=== PATIENT | female | born 1940 | race Caucasian/White ===

== ENCOUNTER 2018-03-10 16:13 | Emergency (ER) | payer MEDICARE, OTHER, SELFPAY ==
[2018-03-10] VITALS (9 sets, daily range): BP systolic 102–122; BP diastolic 62–86; PULSE 64–92; RESP 16–20; TEMP 37.2; O2SAT 90–98
--- NOTE | 2018-03-10 16:41 | ED.GENADULT ---
HPI - General Adult General Chief complaint: Neck Pain/Injury Stated complaint: cant swallow,multiple complaints Time Seen by Provider: 03/10/18 16:41 Source: patient Mode of arrival: ambulatory Limitations: no limitations History of Present Illness HPI narrative: 77-year-old female here for evaluation of multiple complaints. Patient states that she woke this morning with chest pain that was retrosternal that has now moved epigastric pain. She states that she also has bilateral shoulder and back pain. Also complains of neck pain and a sore throat. No abdominal pain. States she went to bed last night without any symptoms and woke with him this morning. They have continued throughout today. Had been constant. Has not tried anything for it. No problems breathing. Related Data Home Medications Medication Instructions Recorded Confirmed Calcium 1 tab PO BID 03/10/18 03/10/18 hydrocodone-acetaminophen 1 - 2 tab PO Q4H PRN 03/10/18 03/10/18 venlafaxine [Effexor XR] 75 mg PO DAILY 03/10/18 03/10/18 vit C,U-Gc-kwecs-lutein-zeaxan 1 tab PO BID 03/10/18 03/10/18 [PreserVision AREDS 2] Previous Rx's Medication Instructions Recorded lorazepam [Ativan] 0.5 mg PO TID #15 tab 02/02/18 omeprazole 40 mg PO QDAY #30 tab 02/12/18 venlafaxine [Effexor XR] 150 mg PO QDAY #30 cap 02/12/18 estradiol [Climara] 0.05 mg TOPICAL Q7D@0900 #8 patch 02/16/18 Allergies Allergy/AdvReac Type Severity Reaction Status Date / Time Sulfa (Sulfonamide Allergy Severe CONVULSION Unverified 02/03/18 12:55 Antibiotics) [SULFA (SULFONAMIDE ANTIBIOTICS)] alendronate sodium Allergy Mild ? Unverified 02/03/18 12:55 [ALENDRONATE SODIUM] alprazolam [ALPRAZOLAM] Allergy Mild ? Unverified 02/03/18 12:55 meperidine [MEPERIDINE] Allergy Mild ? Unverified 02/03/18 12:55 Penicillins [PENICILLINS] Allergy Mild RASH Unverified 02/03/18 12:55 propoxyphene [PROPOXYPHENE] Allergy Mild Unverified 02/03/18 12:55 Review of Systems Constitutional Denies chills, Denies fever(s), Denies headache(s), Denies lethargy and Denies weakness Eyes Denies change in vision, Denies diplopia, Denies irritation and Denies loss of vision ENT Ears, Nose, Mouth, and Throat: Denies vertigo, Reports dry mouth, Denies headache(s), Denies lip swelling, Reports neck pain, Denies sore throat, Denies throat swelling and Denies tongue swelling Cardiovascular Reports chest pain, Reports chest pain at rest, Denies diaphoresis, Denies syncope, Denies edema, Denies irregular heart rhythm, Denies lightheadedness, Reports radiating jaw, neck or arm pain, Denies palpitations, Denies dyspnea, Denies dyspnea on exertion and Denies slow heart rate Respiratory Denies cough, Denies pain on inspiration, Denies pain with cough, Denies dyspnea, Denies dyspnea on exertion and Denies wheezing Gastrointestinal Gastrointestinal: Reports abdominal pain (Epigastric), Denies bloating, Denies change in bowel habits, Denies diarrhea, Denies nausea, Denies vomiting and Denies hematemesis Genitourinary Denies hematuria, Denies dysuria, Denies pelvic pain, Denies flank pain, Denies urinary incontinence and Denies urinary urgency Musculoskeletal Denies abnormal gait, Reports back pain (Upper back), Denies myalgias, Denies arthralgias, Denies limited range of motion and Reports neck pain Integumentary/Breasts Denies pruritus, Denies erythema, Denies rash and Denies wounds Neurologic Denies abnormal gait, Denies vertigo, Denies syncope, Denies headache(s), Denies lack of coordination, Denies focal weakness, Denies loss of vision and Denies weakness Endocrine Denies palpitations Hematologic/Lymphatic Denies easy bleeding and Denies easy bruising Allergic/Immunologic Denies lip swelling, Denies throat swelling, Denies tongue swelling and Denies wheezing [facility] Surgical History History of bilateral salpingo-oophorectomy (BSO) Status post vaginal hysterectomy Social History Smoking Status: Never smoker Exam Initial Vital Signs Initial Vital Signs: Vital Signs Temperature 98.9 F 03/10/18 16:17 Pulse Rate 92 H 03/10/18 16:17 Respiratory Rate 20 03/10/18 16:17 Blood Pressure 122/67 H 03/10/18 16:17 Pulse Oximetry 98 03/10/18 16:17 Const General: cooperative and in distress Nutritional Appearance: average body habitus Orientation: alert, awake and oriented x3 Limitations: mental status not altered [facility] Head: normal to inspection, normocephalic and atraumatic Nose: external nose normal Mouth: No oral mucosae normal (Dry mucous) and No oropharynx normal Throat: uvula midline and no uvular edema Eyes General: appearance normal, both eyes and all related structures Neck Neck: normal visual inspection, no meningeal signs, trachea midline, No anterior neck swelling and No lymphadenopathy Chest Chest: normal inspection of the chest Resp Effort & Inspection: normal respiratory effort, able to speak in complete sentences, no respiratory distress and no use of accessory muscles Auscultation: clear to auscultation bilaterally, no rales, no rhonchi and no wheezes Cardio Rate: regular rate Rhythm: regular rhythm Heart Sounds: no click, no gallops, no murmurs and no rubs Pulses: radial pulses present and normal peripheral pulses GI Inspection: non-distended Palpation: soft, no hepatosplenomegaly, No guarding, No pulsatile mass and No tender Auscultation: normal bowel sounds Back/Spine/Pelvis Back: No CVA tenderness Cervical Spine: cervical ROM normal and No pain with cervical ROM Thoracic/Lumbar Spine: thoracic and lumbar spine normal to inspection and pain with thoraco-lumbar ROM (Pain in upper back with forward flexion) Skin General: no rashes or lesions noted, No jaundice and No petechiae Lesions: no lesions Rashes: no rashes Wounds: no wounds Neuro General: alert, oriented x3, gait normal and no focal motor deficits Speech: speech normal Motor: muscle tone normal throughout and strength 5/5 throughout Sensory Exam: no sensory deficits noted Extrem General: full ROM, no clubbing, cyanosis or edema, no pedal edema and no calf tenderness Psych Appearance: well kempt Mental Status: mental status grossly normal Attitude: cooperative Thought Content: normal Judgment: judgment good Course Orders Ordered: ED Orders 03/10/18 16:27 EKG-12 Lead Stat 03/10/18 16:42 B Type Natriuretic Peptide Stat Complete Blood Count AUTO DIFF Stat Comprehensive Metabolic Panel Stat Lipase Stat Partial Thromboplastin Time Stat Prothrombin Time INR Stat Troponin with CK Cardiac Panel Stat 03/10/18 17:14 XR chest 1V Stat EKG-12 Lead Stat 03/10/18 17:23 CT angio chest abdomen Stat 03/10/18 17:57 Type and Screen Stat 03/10/18 18:00 Packed Cells Stat Type and Screen Stat Sodium Chloride (Normal Saline 0.9%) 1,000 mls @ 150 mls/hr IV CONT RADHA Last Admin: 03/10/18 18:05 Dose: 150 mls/hr Discontinued Medications Aspirin (Aspirin Chew) 324 mg PO NOW ONE Stop: 03/10/18 17:15 Last Admin: 03/10/18 17:37 Dose: 324 mg Al Hydrox/Mg Hydrox/Simethicone 20 ml/ Lidocaine HCl 15 ml 0 ml PO NOW ONE Stop: 03/10/18 17:24 Last Admin: 03/10/18 17:37 Dose: 40 ml Morphine Sulfate (Morphine) 4 mg IV NOW ONE Stop: 03/10/18 18:13 Last Admin: 03/10/18 18:13 Dose: 4 mg Vital Signs - 8 hr 03/10/18 16:17 03/10/18 17:25 03/10/18 17:30 Temperature 98.9 F Pulse Rate 92 H 64 69 Respiratory Rate 20 16 18 Blood Pressure 122/67 H Blood Pressure [Left Arm] 104/75 102/62 Pulse Oximetry 98 98 90 L 03/10/18 18:00 03/10/18 18:10 03/10/18 18:15 Temperature Pulse Rate 72 80 80 Respiratory Rate 18 17 18 Blood Pressure Blood Pressure [Left Arm] 120/80 104/80 104/73 Pulse Oximetry 92 Medical Decision Making [facility] Narrative Medical decision making narrative: Patient with consistent chest pain since she woke up this morning. Initial troponin was negative. Patient is stable here in the emergency department blood pressure is appropriate for her diagnosis. Consult it [facility] however they will informed us that they had to heart transplant surgeries going on this evening and could not take her. Discussed the case with Dr. Santoyo with [facility] accepts patient in transfer. Air lift currently in route. Dr. Santoyo recommended labetalol to lower heart rate which she was given here in the emergency department. Patient and was at bedside were informed of the diagnosis and the need for transport for surgical intervention. They expressed understanding. Patient currently stable for transport. Lab Data Lab results reviewed: Yes I reviewed the patient's lab results. Result diagrams: 03/10/18 16:42 03/10/18 16:42 Lab Results 03/10/18 03/10/18 03/10/18 Range/Units 16:42 16:42 16:42 WBC 10.7 (4.5-11.0) X10^3/uL RBC 4.12 (4.0-5.2) X10^6/uL Hgb 12.5 (12.0-16.0) g/dL Hct 37.9 (36-46) % MCV 92.1 (80-100) fL MCH 30.2 (26-34) PG MCHC 32.9 (30-36) % RDW 14.5 (11.6-14.8) % Plt Count 209 (150-400) X10^3/uL Neut % (Auto) 77.6 H (50-75) % Lymph % (Auto) 14.1 L (25-40) % [place] % (Auto) 7.3 (3-14) % Eos % (Auto) 0.5 L (2-4) % Baso % (Auto) 0.5 (0-2) % Neut # (Auto) 8300 H (8056-7375) /uL PT 12.0 (10.1-12.7) SECONDS INR 1.1 (0.9-1.3) APTT 34 (26.4-36.2) SECONDS Sodium 142 (137-145) mmol/L Potassium 3.6 (3.4-5.1) mmol/L Chloride 100.0 (98-107) mmol/L Carbon Dioxide 31.0 (22-32) mmol/L BUN 34.0 H (7-17) mg/dL Creatinine 0.80 (0.52-1.04) mg/dL Estimated GFR > 60.0 (>60) mL/min BUN/Creatinine Ratio 42.5 H (6-22) Glucose 98 (80-110) mg/dL Calcium 9.1 (8.4-10.2) mg/dL Total Bilirubin 0.5 (0.2-1.3) mg/dL AST 29 (14-36) IU/L ALT 21 (9-52) IU/L Alkaline Phosphatase 89 (38-126) U/L Total Creatine Kinase 35 (30-135) U/L Troponin I < 0.012 (0.01-0.034) ng/mL B-Natriuretic Peptide 47.2 (<100) Total Protein 7.1 (6.3-8.2) g/dL Albumin 3.9 (3.5-5.0) g/dL Globulin 3.2 (1.7-4.1) g/dL Albumin/Globulin Ratio 1.2 (1.0-2.8) Lipase 140 (23-300) U/L Crossmatch (AHG) 03/10/18 Range/Units 18:00 WBC (4.5-11.0) X10^3/uL RBC (4.0-5.2) X10^6/uL Hgb (12.0-16.0) g/dL Hct (36-46) % MCV (80-100) fL MCH (26-34) PG MCHC (30-36) % RDW (11.6-14.8) % Plt Count (150-400) X10^3/uL Neut % (Auto) (50-75) % Lymph % (Auto) (25-40) % [place] % (Auto) (3-14) % Eos % (Auto) (2-4) % Baso % (Auto) (0-2) % Neut # (Auto) (2929-6019) /uL PT (10.1-12.7) SECONDS INR (0.9-1.3) APTT (26.4-36.2) SECONDS Sodium (137-145) mmol/L Potassium (3.4-5.1) mmol/L Chloride (98-107) mmol/L Carbon Dioxide (22-32) mmol/L BUN (7-17) mg/dL Creatinine (0.52-1.04) mg/dL Estimated GFR (>60) mL/min BUN/Creatinine Ratio (6-22) Glucose (80-110) mg/dL Calcium (8.4-10.2) mg/dL Total Bilirubin (0.2-1.3) mg/dL AST (14-36) IU/L ALT (9-52) IU/L Alkaline Phosphatase (38-126) U/L Total Creatine Kinase (30-135) U/L Troponin I (0.01-0.034) ng/mL B-Natriuretic Peptide (<100) Total Protein (6.3-8.2) g/dL Albumin (3.5-5.0) g/dL Globulin (1.7-4.1) g/dL Albumin/Globulin Ratio (1.0-2.8) Lipase (23-300) U/L Crossmatch (AHG) See Detail Imaging Data Chest x-ray: Radiologist's impression: PROCEDURE: XR CHEST 1V INDICATIONS: Chest and back pain TECHNIQUE: One view of the chest was acquired. COMPARISON: [facility], CR, CHEST 2 VIEW, 03/27/2011, 16:29. FINDINGS: Surgical changes and devices: None. Lungs and pleura: No pleural effusions or pneumothorax. Lungs are clear. Chronic scattered scarring/atelectasis Mediastinum: Mediastinal contours appear normal. Heart size is normal. Bones and chest wall: No suspicious bony lesions. Overlying soft tissues appear unremarkable. Scoliosis noted. IMPRESSION: No acute cardiopulmonary disease. No interval change. Dictated by: Gustavo Holden M.D. on 03/10/2018 at 18:06 CT scan - chest: Radiologist's impression: PROCEDURE: CT ANGIO CHEST ABDOMEN INDICATIONS: Chest and back pain would like eval for dissection TECHNIQUE: Precontrast 5 mm thick sections acquired from the lung apices to the iliac crests. After the administration of intravenous contrast, 2.5 mm thick sections again acquired from the lung apices to the iliac crests. 10 mm maximum intensity projection (MIP) oblique sagittal and coronal reformats were then acquired. For radiation dose reduction, the following was used: automated exposure control. COMPARISON: [facility], CT, ABDOMEN/PELVIS WITH CONTRAST, 06/19/2015, 1:23. FINDINGS: Image quality: Excellent. AORTA: There is a massive aortic dissection, which begins at the aortic root, involves the ascending thoracic aorta, aortic arch, descending thoracic aorta and abdominal aorta, as well as extension into the proximal left common iliac artery. There is large amount of intramural hematoma. Dissection also extends into the innominate artery and the proximal right common carotid artery. There is contrast opacification of the great vessels. Large intimal flap at the level of the aortic arch with perforation as seen on image 34 series 5. The diameter of the ascending thoracic aorta measures 5.1 x 4.8 cm. The diameter of the descending thoracic aorta measures 3.3 x 3.3 cm. The celiac artery as contrast opacified. Dissection extends into the superior mesenteric artery which is still contrast opacified and patent. The inferior mesenteric artery arises off the false lumen and is noncontrast opacified. The renal arteries appear contrast opacified bilaterally. No periaortic hematoma is seen CHEST: Lungs and pleura: No acute consolidation. There is scattered scarring/atelectasis. No pleural effusions or pneumothorax. Central and peripheral airways are patent and normal in caliber. Mediastinum: Heart size is normal. No pericardial effusion. No mediastinal or hilar adenopathy by size criteria. Central pulmonary arteries are normal in size. Esophagus is normal in caliber. No hiatal hernias. Bones and chest wall: No axillary adenopathy by size criteria. Thyroid gland is heterogeneous with a subcentimeter nonspecific nodule in the left lobe. No suspicious bony lesions. No vertebral body compression fractures. ABDOMEN: Solid organs: Probable hemangiomas with peripheral nodular enhancement seen in the dome and the right lobe. Gallbladder grossly unremarkable. Biliary system is non dilated. Pancreas enhances normally. Spleen is normal in size and enhancement. No adrenal nodules. Both kidneys are normal in size and enhancement, without hydronephrosis. Nonobstructing 2 mm left renal calculus Peritoneum and bowel: No free fluid or air. Bowel loops are normal in caliber and wall thickness. There is incidental colonic diverticulosis Nodes and vessels: No retroperitoneal or mesenteric adenopathy by size criteria. Inferior vena cava is normal in morphology. Bones: No suspicious bony lesions. No vertebral body compression fractures. Miscellaneous: No ventral hernias. IMPRESSION: Massive aortic dissection from the level of the aortic root to the bifurcation and into the proximal left common iliac artery, as detailed above. 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 Perforated intimal flap is seen at the level of the aortic arch. Additional incidental findings as above. Critical nature of the findings immediately and personally telephoned to Dr. Del Valle in the emergency department at 1825 hours on 03/10/18. ECG Data Attestation: I personally reviewed and interpreted this ECG as follows: Prior ECG tracings: not available for review Interpretation: EKG time 1627 hr Sinus rhythm Ventricular rate is 73 Left axis deviation Occasional PACs Normal QRS Nonspecific ST T wave changes Discharge Plan Departure Patient Disposition: [facility] Clinical Impression: Aortic dissection, thoracoabdominal Prescriptions: No Action lorazepam [Ativan] 0.5 MG tablet 0.5 mg PO TID Qty: 15 RF: 0 venlafaxine [Effexor XR] 150 MG capsule,extended release 24hr 150 mg PO QDAY Qty: 30 RF: 11 omeprazole 40 MG capsule,delayed release(DR/EC) 40 mg PO QDAY Qty: 30 RF: 11 estradiol [Climara] 0.05 MG/24 HR patch weekly 0.05 mg Topical Q7D@0900 Qty: 8 RF: 0 venlafaxine [Effexor XR] 75 MG capsule,extended release 24hr 75 mg PO DAILY RF: 0 hydrocodone-acetaminophen 5-325 mg tablet 1 - 2 tab PO Q4H PRN (Reason: Pain, Moderate) RF: 0 vit C,G-Zk-przfx-lutein-zeaxan [PreserVision AREDS 2] 145-332-09-1 is-cnrs-ju-mg Capsule 1 tab PO BID RF: 0 Calcium tablet 1 tab PO BID RF: 0
--- NOTE | 2018-03-10 17:14 | DI.RAD.S_ITS ---
PROCEDURE: XR CHEST 1V INDICATIONS: Chest and back pain TECHNIQUE: One view of the chest was acquired. COMPARISON: [facility], , CHEST 2 VIEW, 03/27/2011, 16:29. FINDINGS: Surgical changes and devices: None. Lungs and pleura: No pleural effusions or pneumothorax. Lungs are clear. Chronic scattered scarring/atelectasis Mediastinum: Mediastinal contours appear normal. Heart size is normal. Bones and chest wall: No suspicious bony lesions. Overlying soft tissues appear unremarkable. Scoliosis noted. IMPRESSION: No acute cardiopulmonary disease. No interval change. Dictated by: Gustavo Holden M.D. on 03/10/2018 at 18:06 Approved by: Gustavo Holden M.D. on 03/10/2018 at 18:07
[2018-03-10 17:22] LABS: Add Manual Diff / Slide Review NO; Basophils Percent Auto 0.5 % (0-2); Eosinophils Percent Auto 0.5 % (2-4); Hematocrit 37.9 % (36-46); Hemoglobin 12.5 g/dL (12.0-16.0); Lymphocytes Percent Auto 14.1 % (25-40); Mean Corpuscular HGB Conc 32.9 % (30-36); Mean Corpuscular Hemoglobin 30.2 PG (26-34); Mean Corpuscular Volume 92.1 fL (80-100); Monocytes Percent Auto 7.3 % (3-14); Neutrophils Absolute Auto 8300 /uL (3000-5900); Neutrophils Percent Auto 77.6 % (50-75); Platelet Count 209 X10^3/uL (150-400); Red Blood Cell Count 4.12 X10^6/uL (4.0-5.2); Red Cell Distribution Width 14.5 % (11.6-14.8); White Blood Cell Count 10.7 X10^3/uL (4.5-11.0)
--- NOTE | 2018-03-10 17:23 | DI.CT.S_ITS ---
PROCEDURE: CT ANGIO CHEST ABDOMEN INDICATIONS: Chest and back pain would like eval for dissection TECHNIQUE: Precontrast 5 mm thick sections acquired from the lung apices to the iliac crests. After the administration of intravenous contrast, 2.5 mm thick sections again acquired from the lung apices to the iliac crests. 10 mm maximum intensity projection (MIP) oblique sagittal and coronal reformats were then acquired. For radiation dose reduction, the following was used: automated exposure control. COMPARISON: [facility], CT, ABDOMEN/PELVIS WITH CONTRAST, 06/19/2015, 1:23. FINDINGS: Image quality: Excellent. AORTA: There is a massive aortic dissection, which begins at the aortic root, involves the ascending thoracic aorta, aortic arch, descending thoracic aorta and abdominal aorta, as well as extension into the proximal left common iliac artery. There is large amount of intramural hematoma. Dissection also extends into the innominate artery and the proximal right common carotid artery. There is contrast opacification of the great vessels. Large intimal flap at the level of the aortic arch with perforation as seen on image 34 series 5. The diameter of the ascending thoracic aorta measures 5.1 x 4.8 cm. The diameter of the descending thoracic aorta measures 3.3 x 3.3 cm. The celiac artery as contrast opacified. Dissection extends into the superior mesenteric artery which is still contrast opacified and patent. The inferior mesenteric artery arises off the false lumen and is noncontrast opacified. The renal arteries appear contrast opacified bilaterally. No periaortic hematoma is seen CHEST: Lungs and pleura: No acute consolidation. There is scattered scarring/atelectasis. No pleural effusions or pneumothorax. Central and peripheral airways are patent and normal in caliber. Mediastinum: Heart size is normal. No pericardial effusion. No mediastinal or hilar adenopathy by size criteria. Central pulmonary arteries are normal in size. Esophagus is normal in caliber. No hiatal hernias. Bones and chest wall: No axillary adenopathy by size criteria. Thyroid gland is heterogeneous with a subcentimeter nonspecific nodule in the left lobe. No suspicious bony lesions. No vertebral body compression fractures. ABDOMEN: Solid organs: Probable hemangiomas with peripheral nodular enhancement seen in the dome and the right lobe. Gallbladder grossly unremarkable. Biliary system is non dilated. Pancreas enhances normally. Spleen is normal in size and enhancement. No adrenal nodules. Both kidneys are normal in size and enhancement, without hydronephrosis. Nonobstructing 2 mm left renal calculus Peritoneum and bowel: No free fluid or air. Bowel loops are normal in caliber and wall thickness. There is incidental colonic diverticulosis Nodes and vessels: No retroperitoneal or mesenteric adenopathy by size criteria. Inferior vena cava is normal in morphology. Bones: No suspicious bony lesions. No vertebral body compression fractures. Miscellaneous: No ventral hernias. IMPRESSION: Massive aortic dissection from the level of the aortic root to the bifurcation and into the proximal left common iliac artery, as detailed above. 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 Perforated intimal flap is seen at the level of the aortic arch. Additional incidental findings as above. Critical nature of the findings immediately and personally telephoned to Dr. Del Valle in the emergency department at 1825 hours on 03/10/18. Dictated by: Gustavo Holden M.D. on 03/10/2018 at 18:07 Approved by: Gustavo Holden M.D. on 03/10/2018 at 18:27
[2018-03-10 17:24] LABS: INR 1.1 (0.9-1.3)
[2018-03-10 17:26] LABS: PTT Partial Thromboplastin Tim 34 SECONDS (26.4-36.2)
[2018-03-10 17:29] LABS: Alanine Aminotransferase 21 IU/L (9-52); Albumin 3.9 g/dL (3.5-5.0); Albumin Globulin Ratio 1.2 (1.0-2.8); Alkaline Phosphatase 89 U/L (38-126); Aspartate Aminotransferase 29 IU/L (14-36); BUN Creatinine Ratio 42.5 (6-22); Bilirubin Total 0.5 mg/dL (0.2-1.3); Calcium 9.1 mg/dL (8.4-10.2); Creatine Kinase 35 U/L (30-135); Estimated Glomerular Filt Rate > 60.0 mL/min (>60); Globulin 3.2 g/dL (1.7-4.1); Glucose 98 mg/dL (80-110); HEMOLYSIS < 15 (0-50); Lipase 140 U/L (23-300); Potassium 3.6 mmol/L (3.4-5.1); Sodium 142 mmol/L (137-145); Total Protein 7.1 g/dL (6.3-8.2)
[2018-03-10] MEDS: ASPIRIN 81 MG TAB 324 MG PO (17:37)
[2018-03-10] MEDS: MAG HYDROX/ALUMINUM/SIMETH SUS 20 ML, LIDOCAINE VISCOUS 2% 15 ML PO (17:37)
[2018-03-10 17:43] LABS: Troponin I < 0.012 ng/mL (0.01-0.034)
[2018-03-10 17:54] LABS: B Type Natriuretic Peptide 47.2 (<100)
[2018-03-10] MEDS: SODIUM CHLORIDE 0.9% 1,000 ML 150 ML IV (18:05)
[2018-03-10] MEDS: MORPHINE 4 MG/ML INJ IV (18:13)
--- NOTE | 2018-03-10 18:20 | PC.NURSE ---
states this is the worst pain she has ever had - states it is moving from her throat into her mouth and she has back pain and pain across her chest and starting to have a headache, too. Easily becomes agitated
== END 2018-03-10 19:01 | disposition short-term general hospital (02) ==
PROVIDERS: Emergency Provider Emergency Medicine; Family Provider Internal Medicine; PCP Internal Medicine
DX: I71.03 Dissection of thoracoabdominal aorta (principal)
CPT/HCPCS: 71045; 71275; 74175; 80053; 82550; 82553; 83690; 83880; 84484; 85025; 85610; 85730; 86850; 86900; 86901; 93005; 96374; 99283; 99285; 99291; 99292; J2270; Q9967